=== PATIENT | female | born 1950 | race African-American/Black ===

== ENCOUNTER 2018-11-27 12:03 | Emergency (ER) | payer MEDICARE ==
[~2018-11-27] VITALS: Ht 162.6 cm; Wt 75.0 kg
[2018-11-27] MEDS ORDERED: LOSA25TA41 PO (12:19)
[2018-11-27] MEDS ORDERED: ATEN25TA PO (12:19)
[2018-11-27] MEDS ORDERED: METHY500 PO (12:19)
[2018-11-27] MEDS ORDERED: HYDROCODONE/ACETAMINOPHEN 5-325 MG TABLET PO ONE (13:15)
[2018-11-27] MEDS ORDERED: LOSARTAN POTASSIUM 25 MG TABLET PO ONE (14:30)
[2018-11-27] MEDS ORDERED: METHYLDOPA 250 MG TABLET PO ONE (14:30)
[2018-11-27] MEDS ORDERED: ATENOLOL 25 MG TABLET PO ONE (14:30)
[2018-11-27 16:45] VITALS: BP 149/93
== END 2018-11-27 16:52 | disposition home or self-care (01) ==
LOC: EMS 12:04
DX: S52.611A Displaced fracture of right ulna styloid process, initial encounter for closed fracture (principal); S52.511A Displaced fracture of right radial styloid process, initial encounter for closed fracture; M25.511 Pain in right shoulder; I10 Essential (primary) hypertension; E11.9 Type 2 diabetes mellitus without complications; Z88.0 Allergy status to penicillin; Z88.5 Allergy status to narcotic agent; Z88.6 Allergy status to analgesic agent; W19.XXXA Unspecified fall, initial encounter; Y93.89 Activity, other specified; Y92.481 Parking lot as the place of occurrence of the external cause; Y99.8 Other external cause status